=== PATIENT | female | born 1965 | race Two or more races ===

== ENCOUNTER 2017-07-30 14:20 | Emergency (ER) | payer SELFPAY ==
[~2017-07-30] VITALS: Ht 160 cm; Wt 63.5 kg
[2017-07-30 14:30] VITALS: BP 144/77
--- NOTE | 2017-07-30 14:33 | Emergency Room Report ---
History of Present Illness General Chief Complaint: Multiple Trauma/Fall Present Illness HPI 52 yo female patient presents to ER BIB ambulance s/p fall. Reports fell on face and left hand. Reports was on step stool when someone in front of her fell; reports she went to catch her and she fell on her left hand and face. Reports left hand pain and swelling, denies wrist, elbow, or arm pain. Patient denies LOC, denies nausea, vomiting, feeling tired. Patient denies syncope. Denies dizziness prior to fall. Reports left cheek pain and swelling. Denies chest pain, SOB. Allergies: Coded Allergies: No Known Allergies (Unverified , 07/30/17) Patient History Past Medical History: see triage record Now: No Reviewed Nursing Documentation: PMH: Agreed; PSxH: Agreed Review of Systems All Other Systems: negative except mentioned in HPI Physical Exam Vital Signs Date Time Temp Pulse Resp B/P (MAP) Pulse Ox O2 Delivery O2 Flow Rate FiO2 07/30/17 14:21 98.1 70 20 148/78 98 Room Air 98.1 Sp02 EP Interpretation: reviewed, normal General Appearance: well appearing, no apparent distress, alert, GCS 15, non- toxic Head: normocephalic, atraumatic, other - negative Raccoon eyes, negative Matthews sign, no jaw clicking Eyes: bilateral eye normal inspection, bilateral eye PERRL, bilateral eye EOMI ENT: hearing grossly normal, normal pharynx, no angioedema, normal voice, uvula midline, moist mucus membranes Neck: full range of motion Respiratory: lungs clear, normal breath sounds, no rhonchi, no respiratory distress, no accessory muscle use, no wheezing, speaking full sentences Cardiovascular #1: regular rate, rhythm, no edema Cardiovascular #2: 2+ radial (R), 2+ radial (L) Musculoskeletal: back normal, digits/nails normal, gait/station normal, decreased range of motion - secondary to pain of, swelling - dorsum of left hand over pinky finger, eccchymosis, other - NVI, radial nerve intact, tender Neurologic: alert, oriented x3, responsive, motor strength/tone normal, sensory intact Psychiatric: mood/affect normal Skin: other - mild edema over left upper maxillary bone Lymphatic: no adenopathy Medical Decision Making PA Attestation Dr. Wong is my supervising Physician whom patient management has been discussed with. Diagnostic Impression: Primary Impression: Finger fracture, left Additional Impression: Head trauma ER Course Pt. presents to the ED c/o face and hand pain s/p fall. Ddx considered but are not limited to fracture, sprain, strain, contusion, ICH, skull fracture. Will order labs and EKG to rule out arrhythmia or underlying pathology. Low suspicion. No hx of syncope. Will order CT head and x-ray of left hand. Vital signs: are WNL, pt. is afebrile Ordered X-ray and pain medication. ER COURSE Patient resting comfortably, in no acute distress, nontoxic appearing. EKG no ST elevation, no arrhythmia. Labs WNL, no elevation in WBC or LFTs, Hgb normal. CT head negative for acute disease. An X-ray of the left hand was ordered, results show acute fracture of the left pinky finger at the PIP joint, per the preliminary reading. Finger was splinted and was checked afterwards by me showing good alignment and support with distal neurovascular functioning intact. RICE Method Tylenol for pain DISCHARGE: -Rx provided for Tylenol for pain symptoms. At this time pt. is stable for d/c to home. Patient is resting comfortably, in no acute distress, nontoxic appearing, talking without difficulty. Will provide printed patient care instructions, and any necessary prescriptions. Patient instructed to follow with primary care provider in 3 - 5 days and to request further orthopedic follow-up. Care plan and follow up instructions have been discussed with the patient prior to discharge. Patient instructed on RICE method: rest, ice, compression, elevation. Take medications as directed. Patient questions asked and answered. Patient reports understanding and agreement to treatment plan. ER precautions given, patient instructed to return to ER immediately for any new or worsening of symptoms. Labs Test 07/30/17 15:02 White Blood Count 7.0 K/UL (4.8-10.8) Red Blood Count 4.42 M/UL (4.20-5.40) Hemoglobin 13.3 G/DL (12.0-16.0) Hematocrit 40.4 % (37.0-47.0) Mean Corpuscular Volume 92 FL (80-99) Mean Corpuscular Hemoglobin 30.2 PG (27.0-31.0) Mean Corpuscular Hemoglobin Concent 33.0 G/DL (32.0-36.0) Red Cell Distribution Width 12.0 % (11.6-14.8) Platelet Count 217 K/UL (150-450) Mean Platelet Volume 8.9 FL (6.5-10.1) Neutrophils (%) (Auto) 57.4 % (45.0-75.0) Lymphocytes (%) (Auto) 32.9 % (20.0-45.0) Monocytes (%) (Auto) 7.4 % (1.0-10.0) Eosinophils (%) (Auto) 0.8 % (0.0-3.0) Basophils (%) (Auto) 1.4 % (0.0-2.0) Sodium Level 141 MMOL/L (136-145) Potassium Level 4.0 MMOL/L (3.5-5.1) Chloride Level 104 MMOL/L (98-107) Carbon Dioxide Level 32 MMOL/L (21-32) Anion Gap 5 mmol/L (5-15) Blood Urea Nitrogen 15 mg/dL (7-18) Creatinine 0.6 MG/DL (0.55-1.30) Estimat Glomerular Filtration Rate > 60 mL/min (>60) Glucose Level 99 MG/DL (74-106) Calcium Level 9.1 MG/DL (8.5-10.1) Total Bilirubin 0.3 MG/DL (0.2-1.0) Aspartate Amino Transf (AST/SGOT) 29 U/L (15-37) Alanine Aminotransferase (ALT/SGPT) 29 U/L (12-78) Alkaline Phosphatase 118 U/L (46-116) Total Protein 7.6 G/DL (6.4-8.2) Albumin 3.8 G/DL (3.4-5.0) Globulin 3.8 g/dL Albumin/Globulin Ratio 1.0 (1.0-2.7) EKG Diagnostic Results Rate: normal Rhythm: NSR ST Segments: no acute changes ASA given to the pt in ED: No PA Scribe Text Curt Chavez PA-C Rhythm Strip Diag. Results EP Interpretation: yes Rate: 66 Rhythm: NSR, no PVC's, no ectopy PA Scribe Text Curt Chavez PA-C Other X-Ray Diagnostic Results Other X-Ray Diagnostic Results : X-Ray ordered: xray hand # of Views/Limited Vs Complete: 3 View Indication: Pain EP Interpretation: Yes PA Xray: Interpretation reviewed, by supervising MD, and agrees with findings. Interpretation: no dislocation, no soft tissue swelling, other - left hand pinky finger fracture Impression: Other - fracture SIOBHAN Scribe Text Curt Chavez PA-C CT/MRI/US Diagnostic Results CT/MRI/US Diagnostic Results : Imaging Test Ordered: CT head Impression No intracranial hemorrhage, mass effect or CT evidence of acute infarct Ventricles are within limits and midline Visualized paranasal sinuses, mastoids and orbits are within limits Last Vital Signs Date Time Temp Pulse Resp B/P (MAP) Pulse Ox O2 Delivery O2 Flow Rate FiO2 07/30/17 14:30 98.1 81 20 144/77 98 Room Air 98.1 Disposition: HOME, SELF-CARE Condition: Stable Scripts Acetaminophen* (TYLENOL EXTRA STRENGTH*) 500 Mg Tablet 500 MG ORAL Q8H PRN for Prn Headache/Temp > 101, #30 TAB 0 Refills Prov: Nir Chavez 07/30/17 Patient Instructions: Finger Fracture, [id number], Head Injury, Adult, Easy- to-Read Additional Instructions: Patient instructed to follow up with primary care provider and discuss further referral to orthopedics. Patient instructed on RICE method: rest, ice, compression, elevation. Patient instructed to NWB. Take medications as directed. Patient questions asked and answered. ER precautions given, patient instructed to return to ER immediately for any new or worsening of symptoms. Nir Chavez Jul 30, 2017 14:33
[2017-07-30] MEDS ORDERED: Acetaminophen 500mg (ES) tab ORAL ONE (14:45)
[2017-07-30 15:23] LABS: ANION GAP 5 mmol/L (5-15); BLOOD UREA NITROGEN 15 mg/dL (7-18); CALCIUM 9.1 MG/DL (8.5-10.1); CARBON DIOXIDE 32 MMOL/L (21-32); CHLORIDE 104 MMOL/L (98-107); CREATININE 0.6 MG/DL (0.55-1.30); SODIUM 141 MMOL/L (136-145)
[2017-07-30 15:28] LABS: ALANINE AMINOTRANSFERASE 29 U/L (12-78); ALBUMIN 3.8 G/DL (3.4-5.0); ALKALINE PHOSPHATASE 118 U/L (46-116); ASPARTATE AMINO TRANSFERASE 29 U/L (15-37); BILIRUBIN,TOTAL 0.3 MG/DL (0.2-1.0)
[2017-07-30 15:32] LABS: BASOPHILS % (AUTO) 1.4 % (0.0-2.0); EOSINOPHILS % (AUTO) 0.8 % (0.0-3.0); HEMATOCRIT 40.4 % (37.0-47.0); HEMOGLOBIN 13.3 G/DL (12.0-16.0); LYMPHOCYTES % (AUTO) 32.9 % (20.0-45.0); MEAN CORPUSCULAR VOLUME 92 FL (80-99); MONOCYTES % (AUTO) 7.4 % (1.0-10.0); NEUTROPHILS % (AUTO) 57.4 % (45.0-75.0); PLATELET COUNT 217 K/UL (150-450); RED BLOOD COUNT 4.42 M/UL (4.20-5.40)
[2017-07-30] MEDS ORDERED: TYLENOL EXTRA500 MG ORAL (16:29)
[2017-07-30 16:44] VITALS: BP_SYST 144; BP_SYST 153; BP_DIAS 77; BP_DIAS 81
--- NOTE | 2017-07-31 17:13 | Diagnostic Imaging Report ---
Indication: Altered mental status Technique: Continuous helical CT scanning of the head was performed without intravenous contrast material. Axial and coronal 5 mm sections were generated. Dose: Total Dose Length Product - DLP [address] Dose Index - CTDIvol(s) 70.38 mGy. Automated exposure control was utilized for dose reduction. Comparison:None. Findings: The ventricular system is normal in size and configuration. There is no shift of midline structures. No abnormal extra-axial fluid collections are noted. There is no evidence of intracerebral bleeding. No other abnormal high or low density areas are noted within the brain. Impression: Normal CT scan of the head without contrast material. The above report is concordant with preliminary reading by [facility] . The CT scanner at [facility] is accredited by the [employer] and the scans are performed using protocols designed to limit radiation exposure to as low as reasonably achievable to attain images of sufficient resolution adequate for diagnostic evaluation.
--- NOTE | 2017-07-31 17:15 | Diagnostic Imaging Report ---
Indication: Reason For Exam: PAIN Technique: Hand, 3 views Comparison: None. Findings: 07/31/2017 Impression: Normal left hand.
== END 2017-07-30 16:44 | disposition home or self-care (01) ==
LOC: EDBD 14:20 → EMR 15:37
DX: S62.617A Displaced fracture of proximal phalanx of left little finger, initial encounter for closed fracture (principal); S09.90XA Unspecified injury of head, initial encounter; W19.XXXA Unspecified fall, initial encounter; Y92.9 Unspecified place or not applicable; R41.82 Altered mental status, unspecified
CPT/HCPCS: 36415; 70450; 80053; 85025; 93005; 99284

== ENCOUNTER 2017-08-02 09:06 | Emergency (ER) | payer SELFPAY ==
[~2017-08-02] VITALS: Ht 152.4 cm; Wt 66.2 kg
[~2017-08-02 09:06] MED LIST: TYLENOL EXTRA500 MG ORAL
[2017-08-02] MEDS ORDERED: NKM (09:20)
[2017-08-02 09:25] VITALS: BP 128/82
[2017-08-02 09:43] VITALS: BP 128/82
--- NOTE | 2017-08-03 08:00 | Emergency Room Report ---
History of Present Illness General Chief Complaint: General Complaint Source: Patient Present Illness HPI 52-year-old female presents to ED for follow-up. Patient had a mechanical trip and fall injuring her left hand on 07/30. Evaluated here and subsequently discharged. Has finger splint. Is here for work note. Patient states she did not receive one at discharge. Would like to have 2 additional days off. States pain is well controlled. No other aggravating relieving factors. Denies any other associated symptoms Allergies: Coded Allergies: No Known Allergies (Unverified , 07/30/17) Patient History Past Medical History: HTN Past Surgical History: none Pertinent Family History: none Social History: Denies: smoking, alcohol use, drug use Last Menstrual Period: Post Now: No Immunizations: UTD Reviewed Nursing Documentation: PMH: Agreed; PSxH: Agreed Nursing Documentation-PMH Hx Hypertension: Yes Review of Systems All Other Systems: negative except mentioned in HPI Physical Exam Vital Signs Date Time Temp Pulse Resp B/P (MAP) Pulse Ox O2 Delivery O2 Flow Rate FiO2 08/02/17 09:17 98.6 70 17 128/82 98 Room Air 98.6 Sp02 EP Interpretation: reviewed, normal General Appearance: no apparent distress, alert, GCS 15, non-toxic Head: normocephalic Eyes: bilateral eye normal inspection, bilateral eye PERRL ENT: normal ENT inspection Neck: normal inspection Respiratory: normal inspection Cardiovascular #1: normal inspection Gastrointestinal: normal inspection Rectal: deferred Genitourinary: no CVA tenderness Musculoskeletal: other - finger splint on L 5th finger Neurologic: alert, oriented x3, responsive, motor strength/tone normal, sensory intact, speech normal Psychiatric: normal inspection Skin: normal inspection Lymphatic: normal inspection Medical Decision Making Diagnostic Impression: Primary Impression: Finger fracture Qualified Codes: S62.607D - Fracture of unspecified phalanx of left little finger, subsequent encounter for fracture with routine healing ER Course 52-year-old female presents to ED for work note. Was here on 07/30 status post fall with head injury Patient placed in chair. Patient has finger splint on left fifth finger. I reviewed EMR. Provider notes document possible fracture of the left fifth PIP. Patient subsequently placed in finger splint. Official reading of x-ray shows no fracture. I splinted the patient that we can only provide work excuses up to 2 days from the initial injury. At this point I cannot provide patient any additional days off. I will provide her with a note documenting time off until today. I also documented modified duty. Recommend close follow-up with PMD and employee health if patient were to require additional time off Diagnosisfinger fracture Stable and discharged to home. Follow-up with PMD. Return to ED if symptoms recur or worsen Last Vital Signs Date Time Temp Pulse Resp B/P (MAP) Pulse Ox O2 Delivery O2 Flow Rate FiO2 08/02/17 09:43 98.6 70 17 128/82 98 Room Air 98.6 Status: improved Disposition: HOME, SELF-CARE Condition: Stable Referrals: NOT CHOSEN IPA/MD,REFERRING (PCP) Departure Forms: Return to Work Return to Work Date: Aug 02, 2017 Work Restrictions: No Heavy Lifting Patient Instructions: Finger Fracture, [id number] Raul Rich MD Aug 03, 2017 07:59
== END 2017-08-02 09:43 | disposition home or self-care (01) ==
LOC: EMR 09:35
DX: S62.627D Displaced fracture of middle phalanx of left little finger, subsequent encounter for fracture with routine healing (principal); W19.XXXD Unspecified fall, subsequent encounter; I10 Essential (primary) hypertension
CPT/HCPCS: 99282

== ENCOUNTER → 2019-01-03 | Outpatient (CLI) | payer MEDICAID ==
[~2019-01-03] MED LIST changes: +NKM
[2019-01-03 11:42] LABS: APPEARANCE,URINE CLEAR; BILIRUBIN, URINE NEGATIVE (NEGATIVE); COLOR,URINE PALE YELLOW; GLUCOSE, URINE (UA) NEGATIVE (NEGATIVE); KETONES,URINE NEGATIVE (NEGATIVE); LEUKOCYTE ESTERASE ,URINE NEGATIVE (NEGATIVE); NITRITE,URINE NEGATIVE (NEGATIVE); PH,URINE 9 (4.5-8.0); PROTEIN,URINE NEGATIVE (NEGATIVE); UROBILINOGEN,URINE NORMAL MG/DL (0.0-1.0)
[2019-01-03 11:53] LABS: BASOPHILS % (AUTO) 1.3 % (0.0-2.0); EOSINOPHILS % (AUTO) 0.5 % (0.0-3.0); HEMATOCRIT 41.1 % (37.0-47.0); HEMOGLOBIN 13.4 G/DL (12.0-16.0); LYMPHOCYTES % (AUTO) 27.1 % (20.0-45.0); MEAN CORPUSCULAR VOLUME 92 FL (80-99); MONOCYTES % (AUTO) 7.4 % (1.0-10.0); NEUTROPHILS % (AUTO) 63.7 % (45.0-75.0); PLATELET COUNT 249 K/UL (150-450); RED BLOOD COUNT 4.47 M/UL (4.20-5.40); RED CELL DISTRIBUTION WIDTH 11.8 % (11.6-14.8); WHITE BLOOD COUNT 6.5 K/UL (4.8-10.8)
[2019-01-03 12:01] LABS: ANION GAP 9 mmol/L (5-15); BLOOD UREA NITROGEN 8 mg/dL (7-18); CALCIUM 9.5 MG/DL (8.5-10.1); CARBON DIOXIDE 30 MMOL/L (21-32); CHLORIDE 104 MMOL/L (98-107); CREATININE 0.6 MG/DL (0.55-1.30); POTASSIUM 4.1 MMOL/L (3.5-5.1); SODIUM 143 MMOL/L (136-145)
[2019-01-03 12:03] LABS: INR 0.9 (0.9-1.1)
--- NOTE | 2019-01-03 13:05 | Diagnostic Imaging Report ---
Indication: Cough Technique: 2 views of the chest Comparison: None Findings: Lungs and pleural spaces are clear. The heart size is normal. There is mild scoliotic deformity. Impression: Negative
== END | disposition home or self-care (01) ==
LOC: RAD 11:06
DX: Z01.818 Encounter for other preprocedural examination (principal); R05 Cough
CPT/HCPCS: 36415; 71046; 80048; 81001; 85025; 85610; 85730; 93005